=== PATIENT | female | born 1980 | race Caucasian/White ===

== ENCOUNTER 2017-08-22 20:16 | Emergency (ER) | payer MEDICAID ==
[2017-08-22 23:09] LABS: URINE PH (Dip) POC 5.5 (5.0-8.5)
[2017-08-22 23:09] LABS: URINE BLOOD (Dip) POC Negative (NEGATIVE); URINE KETONES (Dip) POC Negative (NEGATIVE); URINE LEUKOCYTE EST (Dip) POC Trace (NEGATIVE); URINE NITRITE (Dip) POC Negative (NEGATIVE); URINE TOTAL PROTEIN POC Negative (NEGATIVE)
== END 2017-08-22 23:42 | disposition home or self-care (01) ==
LOC: FTE 20:16
DX: J02.0 Streptococcal pharyngitis (principal)
CPT/HCPCS: 81003; 87880; 99283

== ENCOUNTER 2017-09-13 19:55 | Emergency (ER) | payer MEDICAID | END 2017-09-13 20:57 | disposition home or self-care (01) | LOC: E/R 19:55 | DX: R05 Cough (principal); E11.9 Type 2 diabetes mellitus without complications; Z79.84 Long term (current) use of oral hypoglycemic drugs | CPT/HCPCS: 99283; Z7502 ==

== ENCOUNTER 2017-10-21 20:20 | Emergency (ER) | payer MEDICAID ==
[2017-10-21] MEDS: HYDROCODONE/APAP (5/325) TAB PO (22:24)
== END 2017-10-22 00:15 | disposition home or self-care (01) ==
LOC: FTE 10-22 00:15
DX: M54.32 Sciatica, left side (principal); E11.9 Type 2 diabetes mellitus without complications
CPT/HCPCS: 73510; 99283-25

== ENCOUNTER 2017-11-16 16:03 | Emergency (ER) | payer SELFPAY, MEDICAID | END 2017-11-16 19:29 | disposition left against medical advice (07) | LOC: FTE 16:03 | DX: Z53.21 Procedure and treatment not carried out due to patient leaving prior to being seen by health care provider (principal) ==

== ENCOUNTER 2018-04-20 19:27 | Emergency (ER) | payer SELFPAY, MEDICAID | END 2018-04-20 20:54 | disposition left against medical advice (07) | LOC: FTE 19:27 | DX: Z53.21 Procedure and treatment not carried out due to patient leaving prior to being seen by health care provider (principal) ==

== ENCOUNTER 2018-04-21 09:45 | Emergency (ER) | payer SELFPAY ==
[2018-04-21] MEDS: predniSONE 20 MG TAB PO (10:42)
[2018-04-21] MEDS: DIPHENHYDRAMINE 50 MG INJ IM (10:43)
== END 2018-04-21 11:26 | disposition home or self-care (01) ==
LOC: FTE 09:45
DX: L30.9 Dermatitis, unspecified (principal); E11.9 Type 2 diabetes mellitus without complications; Z79.84 Long term (current) use of oral hypoglycemic drugs
CPT/HCPCS: 96372; 99284-25